=== PATIENT | female | born 1935 | race Caucasian/White ===

== ENCOUNTER → 2016-06-16 | Outpatient (CLI) | payer MEDICARE, BC ==
--- NOTE | ~2016-06-16 | CR213 ---
[facility] A Service of [facility] & [facility] RADIOLOGY TEXT RESULTS PATIENT: SUSY LANG LOCATION: [facility] : 35 UNIT #: [id number] AGE: [address]: KATE LOPEZ MD SEX: F ORDER DR: [id number] [facility] [address] [place], [place] [address] [id number] O MR#: [id number] Acc #: [id number] NAME: SUSY LANG : 1935 SEX: F STUDY DATE/TIME: 06/16/2016 11:24 UNIT: [facility] ROOM: STUDY DESCRIPTION: CR Ribs Unilateral 2 View Rt Attending Physician: Kate Lopez M.D. Referring Physician: Kate Lopez M.D. Ordering Physician: Kate Lopez M.D. Primary Care Physician: Atul Moy M.D. MEDICAL IMAGING REPORT This report is preliminary unless electronic signature is present EXAM Right ribs HISTORY Right rib pain mid to right side of chest x1 week. May have injured while pulling bag of groceries. FINDINGS Detailed views of the right ribs demonstrate generalized osteopenia. There is deformity of the thorax suggesting underlying kyphosis. No discernible rib fracture. No lytic or blastic lesion. Air lucency within the middle mediastinum may represent a large hiatal hernia or intrathoracic stomach. Heart, great vessels unremarkable. IMPRESSION 1. No visible right rib fracture. Generalized osteopenia. 2. Deformity of the thorax suggesting underlying kyphosis. 3. Suspected large hiatal hernia. Dictated by... Dalila Morales M.D. THIS IS AN ELECTRONICALLY VERIFIED REPORT Dalila Morales M.D. at 06/21/2016 1:53 PM YURIY/caryl TD: 06/17/2016 07:31 JOB #: [id number] MEDICAL IMAGING REPORT Page 1 of 1 COPY
== END | disposition home or self-care (01) ==
LOC: CRAD 11:01
DX: M94.0 Chondrocostal junction syndrome [Tietze] (principal); M85.88 Other specified disorders of bone density and structure, other site; M95.4 Acquired deformity of chest and rib
CPT/HCPCS: 71100

== ENCOUNTER → 2016-08-08 | Outpatient (CLI) | payer MEDICARE, BC ==
--- NOTE | ~2016-08-08 | CR243 ---
[facility] A Service of [facility] & [facility] RADIOLOGY TEXT RESULTS PATIENT: SUSY LANG LOCATION: [facility] : 35 UNIT #: [id number] AGE: [address]: KATE VERA MD SEX: F ORDER DR: [id number] [facility] [address] [place], [place] [address] [id number] O MR#: [id number] Acc #: [id number] NAME: SUSY LANG : 1935 SEX: F STUDY DATE/TIME: 08/08/2016 13:17 UNIT: [facility] ROOM: STUDY DESCRIPTION: CR Thoracic Spine 3 Views Attending Physician: Kate Vera M.D. Referring Physician: Kate Vera M.D. Ordering Physician: Kate Vera M.D. Primary Care Physician: Kate Vera M.D. MEDICAL IMAGING REPORT This report is preliminary unless electronic signature is present EXAM Thoracic spine, 3 views, 08/08/2016. HISTORY Mid to upper back pain and posterior rib pain for 1 week. FINDINGS Osteopenia and multiple compression fractures. When compared to a CT chest of 02/18/2013, there is no definite new fracture, though it is possible that a fracture at T7 has shown slight progression. Redemonstrated mid to lower thoracic levoscoliosis. IMPRESSION Osteopenia and multiple compression fractures, mostly chronic. Question slight progression of a T7 fracture since a chest CT of 02/18/2013, though that is not definite. Redemonstrated levoscoliosis. Dictated by... Gerson Romeo M.D. THIS IS AN ELECTRONICALLY VERIFIED REPORT Gerson Romeo M.D. at 08/16/2016 1:16 PM LIAN/gloria TD: 08/08/2016 15:58 JOB #: [id number] MEDICAL IMAGING REPORT Page 1 of 1 COPY
--- NOTE | ~2016-08-08 | CR209 ---
[facility] A Service of [facility] & [facility] RADIOLOGY TEXT RESULTS PATIENT: SUSY LANG LOCATION: [facility] : 35 UNIT #: [id number] AGE: [address]: KATE VERA MD SEX: F ORDER DR: [id number] [facility] [address] [place], [place] [address] [id number] O MR#: [id number] Acc #: [id number] NAME: SUSY LANG : 1935 SEX: F STUDY DATE/TIME: 08/08/2016 13:16 UNIT: [facility] ROOM: STUDY DESCRIPTION: CR Ribs Hernandez 4 View W PA Ch Attending Physician: Kate Vera M.D. Referring Physician: Kate Vera M.D. Ordering Physician: Kate Vera M.D. Primary Care Physician: Kate Vera M.D. MEDICAL IMAGING REPORT This report is preliminary unless electronic signature is present EXAM PA chest with bilateral rib series INDICATION Pain in mid back and posterior ribs for a week. FINDINGS A PA view of the chest and oblique views of the ribs were obtained. The patient is kyphotic and the ribs are somewhat crowded together. I cannot identify any fractures on either side. Heart size and vascularity are normal. Patient has a large hiatal hernia. IMPRESSION 1. Large hiatal hernia. 2. No visible rib fractures. 3. No active disease. Dictated by... Addison Willard M.D. THIS IS AN ELECTRONICALLY VERIFIED REPORT Addison Willard M.D. at 08/09/2016 11:55 AM EMILY/radha TD: 08/09/2016 08:26 JOB #: [id number] MEDICAL IMAGING REPORT Page 1 of 1 COPY
== END | disposition home or self-care (01) ==
LOC: CRAD 12:31
DX: M54.9 Dorsalgia, unspecified (principal); K44.9 Diaphragmatic hernia without obstruction or gangrene
CPT/HCPCS: 71111; 72072